=== PATIENT | female | born 2005 | race Caucasian/White ===

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

== ENCOUNTER 2023-02-05 13:57 | Inpatient (IN) | payer MEDICAID, SELFPAY ==
[2023-02-05 14:00] VITALS: BP 127/72; PULSE 115; RESP 16; TEMP 36.6; O2SAT 99; BMI 20.2
--- NOTE | 2023-02-05 14:04 | ECG_ITS ---
[facility] Test Date: 2023-02-05 Pat Name: Cortney Lira Department: Room: Gender: Female Plate Sensitizer: : 2005 Requested By: Cole Michelle Order Number: [id number] Shaunna MD: Monserrat Maravilla M.D. Measurements Intervals [place] Rate: 98 P: 66 WI: 133 QRS: 81 QRSD: 92 T: 55 QT: 370 QTc: 474 Interpretive Statements SINUS RHYTHM INTERPRETATION BASED ON A DEFAULT AGE OF 40 YEARS No previous ECG available for comparison Electronically Signed On 02-06-2023 1:16:33 CDT by Monserrat Maravilla M.D. [email or web address] [id number] f
--- NOTE | 2023-02-05 14:05 | XRR_ITS ---
PROCEDURE INFORMATION: Exam: XR Chest Exam date and time: 02/05/2023 2:11 PM Age: 18 years old Clinical indication: Shortness of breath; Additional info: Overdose TECHNIQUE: Imaging protocol: Radiologic exam of the chest. Views: 1 view. COMPARISON: No relevant prior studies available. FINDINGS: Lungs: Unremarkable. No consolidation. Pleural spaces: Unremarkable. No pleural effusion. No pneumothorax. Heart/Mediastinum: Unremarkable. No cardiomegaly. Bones/joints: Unremarkable. XR/XR chest 1V portable [id number] IMPRESSION: No acute findings.
--- NOTE | 2023-02-05 14:07 | W.ED.OVERDOS ---
HPI - Overdose General: Chief Complaint: Overdose Stated Complaint: possible OD Time Seen by Provider: 02/05/23 14:02 History of Present Illness: Patient presents to the ER with her boyfriend. Patient's complaint is she took a bunch of hydrocodone with Tylenol approximate hour and a half ago, maybe 7 or 8 [place] 10mgs. Patient states she is never anything like this before. Patient states she was upset because she has had a baby in August and her boyfriend made her five it up fo adoption to his biological daughter, . complaint: intentional overdose Onset (ago): hour(s) (About 1-1/2 hours ago) Timing confirmed by: family member Intent: suicide attempt Context: Intentional Overdose: other (Family issues) Treatments Prior to Arrival: none Review of Systems General: Reports: 10 or more systems reviewed and unremarkable except in HPI and below Const: Denies: fever(s), chills or body aches Eyes: Denies: change in vision or photophobia ENMT: Denies: throat pain or odynophagia Card: Denies: chest pain, palpitations or irregular heart rhythm Resp: Denies: dyspnea, productive cough or non-productive cough GI: Reports: nausea and vomiting; Denies: abdominal pain : Denies: flank pain or dysuria Musc: Denies: neck pain or back pain Skin/Breast: Denies: rash or pruritus Neuro: Denies: headache(s), numbness in extremities or weakness in extremities Endo: Denies: polyuria, polydipsia or tired all the time Melo/Lymph: Denies: easy bruising or easy bleeding COUNTS INCLUDE 234 BEDS AT THE [facility] ED PFSH: Social History Smoking and tobacco status: never smoked Physical Exam Const: COMMON NORMALS: no acute distress, patient oriented x3, no limitations, healthy appearing, alert and well nourished HENMT: COMMON NORMALS: normocephalic, atraumatic, hearing grossly normal bilaterally, external ears normal, Normal external nose present and moist oral mucous membranes HEAD & SCALP: normocephalic and atraumatic NOSE: Normal external nose present EXTERNAL EAR: Yes external ears normal Eye: COMMON NORMALS: Equal, round and reactive pupils present, EOMs intact bilaterally, conjunctivae normal and no scleral icterus CONJUNCTIVA: Yes conjunctivae normal PUPIL: Yes Equal, round and reactive pupils present Neck/C-Spine: COMMON NORMALS: full ROM, no lymphadenopathy, supple, no meningeal signs, no JVD and Thyroid normal THYROID: Thyroid normal Lymph: LYMPHATIC: no lymphadenopathy noted Chest: COMMONS NORMALS: normal inspection of the chest and normal palpation of entire chest wall Resp: COMMON NORMALS: normal respiratory effort, No retractions, No use of accessory muscles and clear to auscultation bilaterally AUSCULTATION: clear to auscultation bilaterally Cardio: COMMON NORMALS: no JVD, regular rate, regular rhythm, S1 normal heart sound present, S2 normal heart sound present, No gallops present (Cardio), No clicks present (Cardio), No murmurs present (Cardio) and No rub (Cardio) RATE: regular rate RHYTHM: regular rhythm HEART SOUNDS: S1 normal heart sound present and S2 normal heart sound present GI: COMMON NORMALS: Normal to inspection, nondistended, normoactive bowel sounds present, Soft to palpation, non-tender, No hepatosplenomegaly present and no masses PALPATION: Yes Soft to palpation and Yes No hepatosplenomegaly present Extremity: COMMON NORMALS: normal to inspection Neuro: COMMON NORMALS: patient oriented x3, CN's II-XII intact bilaterally, moves all extremities, no focal motor deficits and no sensory deficits noted SENSORIUM/ORIENTATION: Yes alert MENINGEAL SIGNS: Yes no meningeal signs Psych: COMMON NORMALS: speech normal APPEARANCE: Yes grossly normal ACTIVITY/MOTOR BEHAVIOR: Yes appropriate eye contact SPEECH: Yes normal speech MOOD & AFFECT: Yes depressed mood, Yes anxious, Yes sad and Yes tearful Course Vital Signs: Vital signs: Vital Signs Temperature 97.8 F 02/05/23 14:00 Pulse Rate 100 02/05/23 17:09 Respiratory Rate 18 02/05/23 17:09 Blood Pressure 122/53 02/05/23 17:09 Pulse Oximetry 96 02/05/23 17:09 Oxygen Delivery Me thod Room Air 02/05/23 17:09 MDM - Overdose Medical Decision Making Patient presents to the ER with a self-admitted suicide attempt taking multiple hydrocodone pills. Patient's been fully alert oriented and coherent the entire time. Lab work was obtained Dr. Arias was consulted and agreed to admit to NPU. Differential Diagnosis Likely drug overdose; Unlikely cocaine intoxication, suicide attempt by multiple drug overdose, poisoning by opiate or related narcotic, acetaminophen overdose or accidental drug ingestion Medical Records I reviewed the patient's medical records. Lab Data I reviewed the patient's lab results. 02/05/23 14:16 02/05/23 13:16 Radiology Impressions Chest X-Ray 02/05/23 14:05 IMPRESSION: No acute findings. Laboratory Results WBC 15.6 10^3/uL (4.5-13.0) H 02/05/23 14:16 RBC 5.14 10^6/uL (4.1-5.3) 02/05/23 14:16 Hgb 15.6 g/dL (11.5-15.3) H 02/05/23 14:16 Hct 46.1 % (37.0-47.0) 02/05/23 14:16 MCV 89.7 fl (81-99) 02/05/23 14:16 MCH 30.4 pg (28.0-34.0) 02/05/23 14:16 MCHC 33.8 g/dL (30.0-36.0) 02/05/23 14:16 RDW 12.9 % (12.1-15.1) 02/05/23 14:16 Plt Count 314 10^3/cmm (130-400) 02/05/23 14:16 MPV 11.1 fL (7.4-10.4) H 02/05/23 14:16 Neut % (Auto) 84.6 % 02/05/23 14:16 Lymph % (Auto) 10.4 % 02/05/23 14:16 Weld % (Auto) 4.2 % 02/05/23 14:16 Eos % (Auto) 0.1 % 02/05/23 14:16 Baso % (Auto) 0.3 % 02/05/23 14:16 Neut # (Auto) 13.18 10^3/uL (1.8-8.0) H 02/05/23 14:16 Lymph # (Auto) 1.6 10^3/uL (1.5-6.5) 02/05/23 14:16 Weld # (Auto) 0.7 10^3/uL (0.2-0.9) 02/05/23 14:16 Eos # (Auto) 0.0 10^3/uL (0.0-0.8) 02/05/23 14:16 Baso # (Auto) 0.1 10^3/uL (0.0-0.1) 02/05/23 14:16 Nucleated RBC % (auto) 0 % 02/05/23 14:16 Nucleated RBCs # 0.0 /100WBC 02/05/23 14:16 Sodium 140 mmol/L (136-145) 02/05/23 13:16 Potassium 3.2 mmol/L (3.5-5.1) L 02/05/23 13:16 Chloride 103 mmol/L (98-107) 02/05/23 13:16 Carbon Dioxide 17 mmol/L (22-29) L 02/05/23 13:16 Anion Gap 23.2 (5-19) H 02/05/23 13:16 BUN 13 mg/dL (6-20) 02/05/23 13:16 Creatinine 0.3 mg/dL (0.5-0.9) L 02/05/23 13:16 GFR Calculation 283.6 mL/min (90-130) H 02/05/23 13:16 Glucose 168 mg/dL (65-115) H 02/05/23 13:16 Calculated Osmolality 294 mOsm/kg (285-295) 02/05/23 13:16 Calcium 9.1 mg/dL (8.5-10.5) 02/05/23 13:16 Total Bilirubin 1.8 mg/dL (0.15-1.2) H 02/05/23 13:16 AST 23 U/L (0-32) 02/05/23 13:16 ALT 23 U/L (0-33) 02/05/23 13:16 Alkaline Phosphatase 65 U/L (35-105) 02/05/23 13:16 Total Protein 7.3 g/dL (6.6-8.7) 02/05/23 13:16 Albumin 4.6 g/dL (3.5-5.2) 02/05/23 13:16 Globulin 2.7 g/dL (1.3-4.6) 02/05/23 13:16 HCG, Qual Negative (Negative) 02/05/23 14:23 Urine Color Yellow (Yellow) 02/05/23 14:23 Urine Appearance Clear (CLEAR) 02/05/23 14:23 Urine pH 6 (5-7) 02/05/23 14:23 Ur Specific [place] 1.020 (1.005-1.030) 02/05/23 14:23 Urine Protein Neg (Negative) 02/05/23 14:23 Urine Glucose (UA) Norm (Normal) 02/05/23 14:23 Urine Ketones 2+ (Negative) H 02/05/23 14:23 Urine Blood Neg (Negative) 02/05/23 14:23 Urine Nitrate Negative (Negative) 02/05/23 14:23 Urine Bilirubin Neg (Negative) 02/05/23 14:23 Urine Urobilinogen Norm mg/dL (Negative) 02/05/23 14:23 Ur Leukocyte Esterase Negative (Negative) 02/05/23 14:23 Urine RBC Cancelled 02/05/23 14:23 Urine WBC Cancelled 02/05/23 14:23 Ur Squamous Epith Cells Cancelled 02/05/23 14:23 Ur Transition Epith Cell Cancelled 02/05/23 14:23 Ur Renal Epithelial Cell Cancelled 02/05/23 14:23 Calcium Oxalate Crystal Cancelled 02/05/23 14:23 Uric Acid Crystals Cancelled 02/05/23 14:23 Triple Phos Crystals Cancelled 02/05/23 14:23 Other Crystals Cancelled 02/05/23 14:23 Amorphous Sediment Cancelled 02/05/23 14:23 Urine Bacteria Cancelled 02/05/23 14:23 Hyaline Casts Cancelled 02/05/23 14:23 Fine Granular Casts Cancelled 02/05/23 14:23 Coarse Granular Casts Cancelled 02/05/23 14:23 RBC Casts Cancelled 02/05/23 14:23 Other Casts Cancelled 02/05/23 14:23 Urine Mucus Cancelled 02/05/23 14:23 Urine Trichomonas Cancelled 02/05/23 14:23 Urine Yeast Cancelled 02/05/23 14:23 Urine Sperm Cancelled 02/05/23 14:23 Ur Oval Fat Bodies Cancelled 02/05/23 14:23 Salicylates < 0.3 mg/dL (3-10) L 02/05/23 13:16 Urine Opiates Screen Positive ng/mL (Negative) H 02/05/23 14:23 Acetaminophen 37.6 ug/mL (10-30) H 02/05/23 13:16 Ur Barbiturates Screen Negative ng/mL (Negative) 02/05/23 14:23 Ur Phencyclidine Scrn Negative ng/mL (Negative) 02/05/23 14:23 Ur Amphetamines Screen Negative ng/mL (Negative) 02/05/23 14:23 U Benzodiazepines Scrn Negative ng/mL (Negative) 02/05/23 14:23 Urine Cocaine Screen Negative ng/mL (Negative) 02/05/23 14:23 U Marijuana (THC) Screen Negative ng/mL (Negative) 02/05/23 14:23 Ethyl Alcohol < 10 mg/dL (0-10) 02/05/23 13:16 EKG Data EKG 1: I personally reviewed and interpreted this EKG as follows: EKG interpretation date: 02/05/23 EKG interpretation time: 14:04 Prior EKG tracings: not available for review Interpretation: EKG showed normal sinus rhythm at 90 bpm, CO interval 133, QRS duration 92, QTc 426, no ST-T wave changes Discharge Plan Discharge Patient Disposition: Admitted As Inpatient Clinical Impression: Drug overdose Condition: Stable Prescriptions: No Action [place] 10-325 mg Tablet 1 tab PO Q4H PRN (Reason: Pain) Coding Level of Care Code ED Block Layer for Alesha Kirkland
[2023-02-05 14:32] LABS: Charge for UA Resulting for Rev
[2023-02-05 14:33] LABS: Basophils # 0.1 10^3/uL (0.0-0.1); Basophils % 0.3 %; Eosinophils % 0.1 %; Hematocrit 46.1 % (37.0-47.0); Hemoglobin 15.6 g/dL (11.5-15.3); Lymphocytes # 1.6 10^3/uL (1.5-6.5); Lymphocytes % 10.4 %; Mean Corpuscular HGB Conc 33.8 g/dL (30.0-36.0); Mean Corpuscular Hemoglobin 30.4 pg (28.0-34.0); Mean Corpuscular Volume 89.7 fl (81-99); Mean Platelet Volume 11.1 fL (7.4-10.4); Monocytes # 0.7 10^3/uL (0.2-0.9); Monocytes % 4.2 %; Neutrophils # 13.18 10^3/uL (1.8-8.0); Neutrophils % 84.6 %; Nucleated Red Blood Cells % 0 %; Platelet Count 314 10^3/cmm (130-400); Red Blood Count 5.14 10^6/uL (4.1-5.3); Red Cell Distribution Width 12.9 % (12.1-15.1); White Blood Count 15.6 10^3/uL (4.5-13.0)
--- NOTE | 2023-02-05 14:40 | PC.PHAR ---
pt states takes no rxs or otc meds-pts family brought in a med bottle of norco 10-325 1 tab po q4h prn dated 09/23/2013 with the name isaac worrell who it was prescribed for
[2023-02-05 14:41] LABS: Protein Urine Neg (Negative); Urine Appearance Clear (CLEAR); Urine Color Yellow (Yellow); pH Urine 6 (5-7)
[2023-02-05 14:42] LABS: Bilirubin Urine Neg (Negative); Blood Urine Neg (Negative); Glucose Urine UA Norm (Normal); Ketones Urine 2+ (Negative); Leukocyte Esterase Urine Negative (Negative); Nitrate Urine Negative (Negative); Urobilinogen Urine Norm (Negative)
[2023-02-05 14:44] LABS: HCG Qualitative Urine. Negative (Negative)
[2023-02-05 14:46] VITALS: BP 113/77; PULSE 101; RESP 18; O2SAT 98
[2023-02-05 14:50] LABS: Acetaminophen 37.6 ug/mL (10-30); Alanine Aminotransferase 23 U/L (0-33); Albumin Level 4.6 g/dL (3.5-5.2); Alkaline Phosphatase 65 U/L (35-105); Blood Urea Nitrogen 13 mg/dL (6-20); Calcium 9.1 mg/dL (8.5-10.5); Carbon Dioxide 17 mmol/L (22-29); Chloride 103 mmol/L (98-107); Globulin 2.7 g/dL (1.3-4.6); Glomerular Filtration Rate 283.6 mL/min (90-130); Glucose 168 mg/dL (65-115); Osmolality Calculated 294 mOsm/kg (285-295); Sodium 140 mmol/L (136-145); Total Bilirubin 1.8 mg/dL (0.15-1.2); Total Protein 7.3 g/dL (6.6-8.7)
[2023-02-05 14:50] LABS: Amphetamines Screen Urine Negative (Negative); Barbiturates Screen Urine Negative (Negative); Benzodiazepines Screen Urine Negative (Negative); Cocaine Screen Urine Negative (Negative); Opiate Screen Urine Positive (Negative); PCP Screen Urine Negative (Negative); THC Screen Urine Negative (Negative)
[2023-02-05 14:51] LABS: Alcohol Level < 10 mg/dL (0-10); Salicylate < 0.3 mg/dL (3-10)
[2023-02-05 14:52] LABS: Anion Gap 23.2 (5-19); Aspartate Amino Transferase 23 U/L (0-32); Potassium 3.2 mmol/L (3.5-5.1)
[2023-02-05 15:09] LABS: Add Urine Microscopic? NO
[2023-02-05 15:25] VITALS: BP 137/81; PULSE 131; RESP 18; O2SAT 100
[2023-02-05 17:09] VITALS: BP 122/53; PULSE 100; RESP 18; O2SAT 96
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
[2023-02-05 18:00] VITALS: BP 110/77; PULSE 102; RESP 17; TEMP 36.8; O2SAT 99
[2023-02-05 19:54] VITALS: BP 99/62; PULSE 97; RESP 14; TEMP 36.9; O2SAT 98
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
--- NOTE | 2023-02-06 09:43 | PC.NURSE ---
PT OBSERVED TO BE LAYING IN FLOOR ON MATTRESS. PT STATES I AM NOT SLEEPING IN THE BED WITHOUT SHUTTING MY DOOR, THAT IS CRAP. PT EDUCATED THAT DOORS MUST STAY OPEN TO OBSERVE PATIENT SAFETY. PT CONTINUES TO BE UPSET ABOUT IT. DENIES SI/HI AND AVH AT THIS TIME. PT STATES I AM NOT GOING TO TAKE MEDS SO TELL THE DR. NOT TO WASTE HIS TIME. THIS RN STATED THE DR. WOULD BE INFORMED OF HER REQUEST. PT REFUSED BREAKFAST. WILL OFFER SNACKS AND PO FLUIDS.
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
[2023-02-06 14:00] VITALS: BP 95/66; PULSE 64; RESP 16; TEMP 37.3; O2SAT 100
[2023-02-06 21:04] VITALS: BP 119/82; PULSE 123; RESP 17; TEMP 36.7; O2SAT 97
[2023-02-07 06:00] VITALS: RESP 15
[2023-02-07 14:00] VITALS: BP 111/78; PULSE 114; RESP 20; TEMP 36.6; O2SAT 100
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
--- NOTE | 2023-02-07 16:18 | PC.NURSE ---
Fellow patient overheard Cortney tell her visiting boyfriend, what if I just kill myself tonight, what do you think about that? Dr. Arias notified.
[2023-02-07 20:24] VITALS: BP 125/85; PULSE 109; RESP 17; TEMP 36.8; O2SAT 95
[2023-02-08 06:00] VITALS: RESP 14
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
[2023-02-08 13:00] VITALS: RESP 14
== END 2023-02-08 14:12 | disposition home or self-care (01) | DRG 882 ==
LOC: ER 17:14 → NP 17:31
PROVIDERS: Admitting Provider Psychiatry & Neurology Psychiatry; Emergency Provider Emergency Medicine; Visit Provider Psychiatry & Neurology Psychiatry
DX: F43.25 Adjustment disorder with mixed disturbance of emotions and conduct (principal); Z63.0 Problems in relationship with spouse or partner; T39.1X2A Poisoning by 4-Aminophenol derivatives, intentional self-harm, initial encounter; T40.2X2A Poisoning by other opioids, intentional self-harm, initial encounter; Y92.89 Other specified places as the place of occurrence of the external cause
CPT/HCPCS: 71045; 80053; 80306; 80307; 81003; 81025; 85025; 93005; 97150; 97165; 99238; 99285